=== PATIENT | female | born 1970 | race Caucasian/White ===

== ENCOUNTER 2017-07-07 16:11 | Emergency (ER) | payer BC ==
--- NOTE | 2017-07-07 16:42 | EDM.PDOC ---
ED HPI GENERAL MEDICAL PROBLEM - General Chief Complaint: Genitourinary Problem Stated Complaint: PAIN Time Seen by Provider: 07/07/17 16:15 Source of Information: Reports: Patient History Limitations: Reports: No Limitations - History of Present Illness INITIAL COMMENTS - FREE TEXT/NARRATIVE: C/o R flank pain x 2d, now worse dx b/l kidney stones on CT 03-16-17 for the 1st time had stabbing R flank pain 1d from 2w ago, then had N the past 2w, then had pain x 2d at R flank, worse this AM and much worse in the past 1h went to walk-in clinic and given Toradol at 3p which eased the pain x 30 min, quite uncomfortable now at R flank and R groin dx with UTI at walk-in clinic and given Rx for antbx, not filled yet no f/c/d at home rght mid back/ right lower abdomen Pain Score (Numeric/FACES): 10 - Related Data Allergies Allergy/AdvReac Type Severity Reaction Status Date / Time No Known Allergies Allergy Verified 07/07/17 16:20 Home Meds: Home Meds Acetaminophen [Tylenol] 325 mg PO Q4HR PRN 04/08/16 [History] Albuterol [IJD: Albuterol HFA] 2 puff IH Q4HR PRN 04/08/16 [History] Codeine/guaiFENesin [Robitussin AC] 10 ml PO Q4HR PRN 04/08/16 [History] Cyanocobalamin (Vitamin B12) [Vitamin B12] 1,000 mcg PO DAILY 04/08/16 [History] Folic Acid/Multivit-Min/Lutein [Multi-Vitamin Gummies] 1 each PO DAILY 04/08/16 [History] Ibuprofen 200 mg PO DAILY PRN 04/08/16 [History] MV-Mn/Iron/FA/Herbal Cmplx#190 [Vitamin D3 Complete Caplet] 1 each PO BID [History] Naproxen Sodium [Aleve] 220 mg PO BID PRN 04/08/16 [History] Triamcinolone Acetonide [Kenalog 0.1% Crm] 1 applic TOP BID PRN 04/08/16 [ History] Vitamin B Complex 1 each PO DAILY 04/08/16 [History] Past Medical History HEENT History: Reports: Impaired Vision Cardiovascular History: Reports: Arrhythmia, High Cholesterol, Hypertension Gastrointestinal History: Reports: Colon Polyp 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: Psychiatric History: Reports: None Endocrine/Metabolic History: Reports: Obesity/BMI 30+ - Past Surgical History GI Surgical History: Reports: Bariatric Procedure, Colonoscopy, Polypectomy Female Surgical History: Reports: Section, Hysterectomy Social & Family History - Family History Family Medical History: Noncontributory Oncologic: Reports: Colon - Tobacco Use Smoking Status *Q: Current Every Day Smoker Years of Tobacco use: 30 Packs/Tins Daily: 0.5 Second Hand Smoke Exposure: No - Recreational Drug Use Recreational Drug Use: No ED ROS GENERAL - Review of Systems Review Of Systems: See Below Constitutional: Reports: No Symptoms HEENT: Reports: No Symptoms Respiratory: Reports: No Symptoms Cardiovascular: Reports: No Symptoms Endocrine: Reports: No Symptoms GI/Abdominal: Reports: Abdominal Pain, Nausea : Reports: No Symptoms Musculoskeletal: Reports: Back Pain Skin: Reports: No Symptoms Neurological: Reports: No Symptoms Psychiatric: Reports: No Symptoms Hematologic/Lymphatic: Reports: No Symptoms Immunologic: Reports: No Symptoms ED EXAM, GI/ABD - Physical Exam Exam: See Below Exam Limited By: No Limitations General Appearance: Alert, WD/WN, Moderate Distress, Other (rocking, uncomfortable) Nose: Normal Inspection, Normal Mucosa, No Blood Throat/Mouth: Normal Inspection, Normal Lips, Normal Teeth, Normal Gums, Normal Oropharynx, Normal Voice, No Airway Compromise Head: Atraumatic, Normocephalic Neck: Normal Inspection, Supple, Non-Tender, Full Range of Motion Respiratory/Chest: No Respiratory Distress, Lungs Clear, Normal Breath Sounds, No Accessory Muscle Use, Chest Non-Tender Cardiovascular: Regular Rate, Rhythm, No Edema, No Murmur, No Rub GI/Abdominal Exam: Normal Bowel Sounds, Soft, No Distention, Other (1+ tender in RLQ just above mid-inguinal line and at R flank, no CVAT b/l) Back Exam: Normal Inspection, Full Range of Motion. No: CVA Tenderness (R), CVA Tenderness (L), Muscle Spasm Extremities: Normal Inspection, Normal Range of Motion, Non-Tender, No Pedal Edema Neurological: Alert, Oriented, CN II-XII Intact, Normal Cognition, No Motor/ Sensory Deficits Psychiatric: Normal Affect, Normal Mood Skin Exam: Warm, Dry, Intact, Normal Color, No Rash Lymphatic: No Adenopathy Course - Vital Signs Last Recorded V/S: Last Vital Signs Temp 37.0 C 07/07/17 19:32 Pulse 94 07/07/17 19:32 Resp 18 07/07/17 19:32 BP 129/82 07/07/17 19:32 Pulse Ox 96 07/07/17 19:32 - Orders/Labs/Meds Orders: Active Orders 24 hr Category Date Time Status Abdomen Pelvis wo Cont [CT] Stat Exams 07/07/17 17:10 Taken Ondansetron [Zofran ODT] Med 07/07/17 17:50 Active 4 mg PO ONETIME PRN Medication Orders Ondansetron HCl (Zofran Odt) 4 mg PO ONETIME PRN PRN Reason: Nausea Last Admin: 07/07/17 16:50 Dose: 4 mg Labs: Laboratory Tests 07/07/17 Range/Units 15:08 C-Reactive Protein < 0.2 L (0.5-0.9) mg/dL Meds: Medications Generic Name Dose Route Start Last Admin Trade Name Freq PRN Reason Stop Dose Admin Ondansetron HCl 4 mg 07/07/17 17:50 07/07/17 16:50 Zofran Odt PO 4 mg ONETIME PRN Administration Nausea Discontinued Medications Generic Name Dose Route Start Last Admin Trade Name Freq PRN Reason Stop Dose Admin Ceftriaxone Sodium 1,000 mg 07/07/17 16:36 07/07/17 17:25 Rocephin IVPUSH 07/07/17 16:37 1,000 mg ONETIME ONE Administration Hydromorphone HCl 1 mg 07/07/17 16:35 07/07/17 17:25 Dilaudid IVPUSH 07/07/17 16:36 1 mg ONETIME ONE Administration Hydromorphone HCl 0.5 mg 07/07/17 19:23 07/07/17 19:30 Dilaudid IVPUSH 07/07/17 19:24 0.5 mg ONETIME ONE Administration Sodium Chloride 1,000 mls @ 999 mls/hr 07/07/17 16:35 07/07/17 17:25 Normal Saline IV 07/07/17 17:35 999 mls/hr .BOLUS ONE Administration Ondansetron HCl 4 mg 07/07/17 16:35 07/07/17 18:29 Zofran IVPUSH 07/07/17 16:36 Not Given ONETIME ONE Ondansetron HCl Confirm 07/07/17 16:49 07/07/17 18:29 Zofran Odt Administered 07/07/17 16:50 Not Given Dose 4 mg .ROUTE .STK-MED ONE Ondansetron HCl 4 mg 07/07/17 18:34 Zofran IVPUSH 07/07/17 18:35 ONETIME ONE - Re-Assessments/Exams Free Text/Narrative Re-Assessment/Exam: 07/07/17 19:42 CT shows 7.6 mm stone at R UVJ, also 5 mm stone at R renal pelvis pt has not seen a urologist previously, states she had a UTI 03/04, CT showed 2 calculi at R kidney of 3.9 and 5.8 mm, no obstruction, did not base a stone CT tonight also shows calcification of arteries d/w urologist Dr Perez at [facility] who recommended transfer for a possible procedure as her probability of passing the stone is less than 15%. Pt given an additional 0.5 mg Dilaudid IV for recurrent pain as well as a 2nd dose of Zofran 4 mg IV for recurrent nausea pt declined hospital transfer and will have her s.o. take her by private vehicle pt also d/w hospitalist Dr Harrington who accepted her in transfer Departure - Departure Time of Disposition: 19:41 Disposition: DC/Tfer to Acute Hospital 02 Condition: Fair Clinical Impression: Right ureteral calculus, UTI, Urinary tract infectious disease, Hydronephrosis , Acute prerenal azotemia - Discharge Information Referrals: Destin Conrad MD [Primary Care Provider] - Forms: ED Department Discharge - My Orders Last 24 Hours: My Active Orders 07/07/17 17:10 Abdomen Pelvis wo Cont [CT] Stat 07/07/17 17:50 Ondansetron [Zofran ODT] 4 mg PO ONETIME PRN - Assessment/Plan Last 24 Hours: My Active Orders 07/07/17 17:10 Abdomen Pelvis wo Cont [CT] Stat 07/07/17 17:50 Ondansetron [Zofran ODT] 4 mg PO ONETIME PRN
[2017-07-07] MEDS: Ondansetron 4 MG Tab.DIS PO PRN (16:50)
[2017-07-07] MEDS: cefTRIAXone 1,000 MG VIAL IVPUSH ONE (17:25)
[2017-07-07] MEDS: Sodium Chloride 0.9% 1,000 ML IV ONE (17:25)
[2017-07-07] MEDS: HYDROmorphone 2 MG/ML SDV IVPUSH ONE ×2 (17:25→19:30)
[2017-07-07] MEDS: Ondansetron 4 MG/2 ML SDV IVPUSH ONE ×2 (18:29→19:30)
[2017-07-07] MEDS: Ondansetron 4 MG Tab.DIS ONE (18:29)
[2017-07-07 19:33] VITALS: BP 129/82
--- NOTE | 2017-07-08 10:48 | CT ---
INDICATION: Right flank pain x2 days, UTI, nausea x2 weeks. CT ABDOMEN AND PELVIS WITHOUT CONTRAST: Spiral 1.25-mm axial sections were obtained through the abdomen and pelvis with renal calculus protocol, including sagittal and coronal reconstructions and no contrast. Examination was obtained 07/07/2017 and is compared with 03/16/2017. Total Exam DLP = 1292.51 mGy-cm. The lower lung reardon and pleural spaces visualized appeared normal. The heart appeared normal in size. Evidence of gastric bypass surgery is again noted. There is pyelocaliectasis and ureterectasis down to the ureteropelvic junction area on the right, with a 5.6 x 7.8-mm calculus lodge in the ureteropelvic junction area, but distal to that calculus, appeared normal in caliber. Additionally, there is a calculus in the lower pole of the right kidney, which measured approximately 6.5 mm maximally by 4.5 mm. This calculus does not appear to be obstructive. No other renal calculi were identified. There is renal fascial thickening on the right, compatible with an obstructive process of mild to moderate degree. The liver had a normal appearance. The gallbladder had a somewhat distended appearance, which may be on the basis of NPO status and should be correlated clinically. The spleen, pancreas, common bile duct, adrenal glands, and left kidney were unremarkable. No retroperitoneal mass was identified. Calcifications are noted in the abdominal aorta, iliac, and femoral arteries. The appendix is absent, compatible with history of its removal. The uterus is absent, compatible with history of its removal. No evidence of bowel obstruction or free air was identified. The urinary bladder had a normal appearance. No other organomegaly, mass lesions, or free fluid collections were identified in the abdomen or pelvis. IMPRESSION: 1. Mild to moderate obstructive uropathy on the right with a moderately large calculus lodged in the ureteropelvic junction. 2. Small to moderate sized calculus, measuring 4.5 x 6.5 mm, noted in the lower pole of the right kidney - nonobstructive. 3. ASD - appears relatively extensive for this age group. 4. Post appendectomy. 5. Post hysterectomy. 6. Post gastric bypass surgery. Report was called to Dr. Claire at 1755 hours, 07/07/2017. ROSIBEL
== END 2017-07-07 19:40 ==
LOC: FB.ED 16:11
DX: N13.2 Hydronephrosis with renal and ureteral calculous obstruction (principal); R79.89 Other specified abnormal findings of blood chemistry; N39.0 Urinary tract infection, site not specified; E78.00 Pure hypercholesterolemia, unspecified; I10 Essential (primary) hypertension; F17.210 Nicotine dependence, cigarettes, uncomplicated; E66.9 Obesity, unspecified; Z79.899 Other long term (current) drug therapy
CPT/HCPCS: 36415; 74176; 86140; 96361; 96374; 96375; 96376; 99285; A9270-GY; J0696; J1170; J2405; J7040

== ENCOUNTER 2019-04-28 15:56 | Emergency (ER) | payer BC, OTHER ==
[2019-04-28] MEDS ORDERED: traMADol 50 MG Tab PO ONE (15:57)
--- NOTE | 2019-04-28 16:12 | EDM.PDOC ---
ED HPI GENERAL MEDICAL PROBLEM - General Chief Complaint: Genitourinary Problem Stated Complaint: KIDNEY STONES? Time Seen by Provider: 04/28/19 16:00 Source of Information: Reports: Patient, Old Records History Limitations: Reports: No Limitations - History of Present Illness INITIAL COMMENTS - FREE TEXT/NARRATIVE: Abigail returns to [facility] ED with sudden onset of R lower back pain, steady, and deep. Pain is reminiscent of kidney stone about 2 years ago. There is no nausea or vomiting, no injury hx, and she no reported voiding sxs. She has taken no meds. - Related Data Allergies Allergy/AdvReac Type Severity Reaction Status Date / Time fentanyl Allergy Itching Verified 04/28/19 16:35 Home Meds: Home Meds Acetaminophen [Tylenol] 325 mg PO Q4HR PRN 04/08/16 [History] Cyanocobalamin (Vitamin B12) [Vitamin B12] 1,000 mcg PO DAILY 04/08/16 [History] Folic Acid/Multivit-Min/Lutein [Multi-Vitamin Gummies] 1 each PO DAILY 04/08/16 [History] Mv-Mn/Iron/Folic Acid/Herb 190 [Vitamin D3 Complete Caplet] 1 each PO BID [History] Vitamin B Complex 1 each PO DAILY 04/08/16 [History] Ferrous Fumarate [Ferrocite] 324 mg PO DAILY 04/28/19 [History] traZODone 100 mg PO BEDTIME 04/28/19 [History] Past Medical History HEENT History: Reports: Impaired Vision Cardiovascular History: Reports: Arrhythmia, High Cholesterol, Hypertension Gastrointestinal History: Reports: Colon Polyp, Other (See Below) (Gastric bypass surgery) [employer]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 ED EXAM, RENAL/ - Physical Exam Exam: See Below Exam Limited By: No Limitations General Appearance: Alert, WD/WN, No Apparent Distress, Anxious, Obese Head: Normocephalic Neck: Normal Inspection, Supple, Non-Tender Respiratory/Chest: Lungs Clear Cardiovascular: Regular Rate, Rhythm, No Murmur GI/Abdominal: Normal Bowel Sounds, Soft, Non-Tender, No Organomegaly, No Distention, No Mass (Female) Exam: Deferred Rectal (Female) Exam: Deferred Back Exam: Normal Inspection, Paraspinal Tenderness (R below CVA) Extremities: Normal Inspection, Normal Range of Motion Neurological: Alert, Oriented, CN II-XII Intact, Normal Cognition, No Motor/ Sensory Deficits Psychiatric: Normal Affect, Anxious Skin Exam: Warm, Dry, Intact, Normal Color, No Rash Lymphatic: No Adenopathy Course - Vital Signs Text/Narrative:: Following assessment, the UA, CBC, and BMP were negative. Back pain NOS, possible ureteral stone. - Orders/Labs/Meds Labs: Laboratory Tests 04/28/19 04/28/19 04/28/19 Range/Units 16:15 16:18 16:18 WBC 9.4 (4.5-12.0) X10-3/uL RBC 4.34 (3.23-5.20) x10(6)uL Hgb 12.5 (11.5-15.5) g/dL Hct 37.2 (30.0-51.3) % MCV 85.7 (80-96) fL MCH 28.7 (27.7-33.6) pg MCHC 33.5 (32.2-35.4) g/dL RDW 17.6 H (11.5-15.5) % Plt Count 285 (125-369) X10(3)uL MPV 8.5 (7.4-10.4) fL Neut % (Auto) 57.2 (46-82) % Lymph % (Auto) 35.8 (13-37) % [place] % (Auto) 5.9 (4-12) % Eos % (Auto) 1 (1.0-5.0) % Baso % (Auto) 0 (0-2) % Neut # (Auto) 5.3 (1.6-8.3) # Lymph # (Auto) 3.4 (0.6-5.0) # [place] # (Auto) 0.6 (0.0-1.3) # Eos # (Auto) 0.1 (0.0-0.8) # Baso # (Auto) 0.0 (0.0-0.2) # Sodium 143 (135-145) mmol/L Potassium 3.9 (3.5-5.3) mmol/L Chloride 105 (100-110) mmol/L Carbon Dioxide 25 (21-32) mmol/L BUN 9 (7-18) mg/dL Creatinine 0.5 L (0.55-1.02) mg/dL Est Cr Clr Drug Dosing TNP Estimated GFR (MDRD) > 60 (>60) BUN/Creatinine Ratio 18.0 (9-20) Glucose 85 (80-116) mg/dL Calcium 8.6 (8.6-10.2) mg/dL Urine Color Yellow (YELLOW) Urine Appearance Clear (CLEAR) Urine pH 5.0 (5.0-6.5) Ur Specific [place] 1.010 (1.010-1.025) Urine Protein Negative (NEGATIVE) mg/dL Urine Glucose (UA) Normal (NORMAL) mg/dL Urine Ketones Negative (NEGATIVE) mg/dL Urine Occult Blood Negative (NEGATIVE) Urine Nitrite Negative (NEGATIVE) Urine Bilirubin Negative (NEGATIVE) Urine Urobilinogen Normal (NEGATIVE) mg/dL Ur Leukocyte Esterase Negative (NEGATIVE) Urine RBC 0-5 (0-5) Urine WBC 0-5 (0-5) Ur Squamous Epith Cells Few H (NS,R,O) Urine Bacteria Rare H (NS) Departure - Departure Time of Disposition: 16:48 Disposition: Home, Self-Care 01 Condition: Fair Clinical Impression: History of renal stone - Discharge Information *PRESCRIPTION DRUG MONITORING PROGRAM REVIEWED*: Not Applicable *COPY OF PRESCRIPTION DRUG MONITORING REPORT IN PATIENT ALESSANDRO: Not Applicable Referrals: Walter Blake MD [Primary Care Provider] - Forms: ED Department Discharge Sepsis Event Note - Focused Exam Date Exam was Performed: 04/28/19 Time Exam was Performed: 16:47 - Problem List & Annotations (1) History of renal stone SNOMED Code(s): 815443015 Code(s): Z87.442 - PERSONAL HISTORY OF URINARY CALCULI Status: Acute Annotation/Comment:: I suggested extra fluids, Tramadol, and strain all urine in the interim. - Problem List Review Problem List Initiated/Reviewed/Updated: Yes - Assessment/Plan Plan: Follow up if sxs escalate or stone is collected for analysis.
[2019-04-28 16:51] VITALS: BP 151/82; PULSE 83
== END 2019-04-28 17:00 | disposition home or self-care (01) ==
LOC: FB.ED 15:56
DX: M54.5 Low back pain (principal); Z87.442 Personal history of urinary calculi; I10 Essential (primary) hypertension; E66.9 Obesity, unspecified; Z98.84 Bariatric surgery status; Z90.710 Acquired absence of both cervix and uterus; Z88.8 Allergy status to other drugs, medicaments and biological substances; Z79.899 Other long term (current) drug therapy
CPT/HCPCS: 36415; 80048; 81001; 85025; 99283; A9270

== ENCOUNTER 2021-04-13 07:52 | Day surgery (SDC) | payer OTHER ==
[2021-04-13] MEDS ORDERED: Propofol 200 MG/20 ML SDV IV ONE (07:53)
[2021-04-13] MEDS ORDERED: Lactated Ringers 1,000 ML IV SCH (08:00)
[2021-04-13] MEDS ORDERED: Sodium Chloride 0.9% 10 ML Syringe FLUSH PRN (08:00)
--- NOTE | 2021-04-13 09:23 | PCM.PN ---
- General Info Date of Service: 04/13/21 - Review of Systems Systems Review Comment:: 51 y/o female with family history of colon cancer in her father here for colonoscopy. She is medically stable to proceed. Her recent H and P is reviewed and no significant changes are noted. I have discussed the proposed colonoscopy with the patient. She agrees to proceed accepting risks. - Patient Data Vitals - Most Recent: Last Vital Signs Temp 99.9 F 04/13/21 08:16 Pulse 91 04/13/21 08:16 Resp 20 04/13/21 08:16 BP 154/90 H 04/13/21 08:16 Pulse Ox 94 L 04/13/21 08:16 Weight - Most Recent: 219 lb 2.232 oz Med Orders - Current: Current Medications Lactated Ringer's (Ringers, Lactated) 1,000 mls @ 125 mls/hr IV ASDIRECTED BE Last Admin: 04/13/21 08:43 Dose: 125 mls/hr Documented by: Sodium Chloride (Sodium Chloride 0.9% 10 Ml Syringe) 10 ml FLUSH ASDIRECTED PRN PRN Reason: Keep Vein Open Sepsis Event Note - Focused Exam Vital Signs: Vital Signs Temp Pulse Resp BP Pulse Ox 04/13/21 08:16 99.9 F 91 20 154/90 H 94 L - Problem List Review Problem List Initiated/Reviewed/Updated: Yes - My Orders Last 24 Hours: My Active Orders 04/13/21 Breakfast Nothing Per Oral Diet [DIET] 04/13/21 08:00 Patient Status [ADT] Routine Patient to Empty Bladder [RC] ASDIRECTED Verify Patient Consent Obtain [RC] ASDIRECTED Lactated Ringers [Ringers, Lactated] 1,000 ml IV ASDIRECTED Sodium Chloride 0.9% [Saline Flush] 10 ml FLUSH ASDIRECTED PRN Peripheral IV Insertion Adult [OM.PC] Routine - Assessment Assessment:: Family history of colon cancer - Plan Plan:: Colonoscopy
--- NOTE | 2021-04-13 10:06 | PCM.OPNOTE ---
- General Post-Op/Procedure Note Date of Surgery/Procedure: 04/13/21 Operative Procedure(s): Colonoscopy Findings: Few Diverticuli in Sigmoid Colon Pre Op Diagnosis: Family History of Colon Cancer Post-Op Diagnosis: Sigmoid Diverticulosis Anesthesia Technique: MAC Primary Surgeon: Pedro Miner Pathology: none EBL in mLs: 0 Complications: None Condition: Good
[2021-04-13 11:02] VITALS: BP 137/82; PULSE 84
--- NOTE | 2021-04-13 12:45 | OR ---
DATE OF OPERATION: 04/13/2021 SURGEON: Pedro Miner MD PREOPERATIVE DIAGNOSIS: Family history of colon cancer. POSTOPERATIVE DIAGNOSIS: Sigmoid diverticulosis. OPERATION PERFORMED: Colonoscopy. INDICATIONS FOR SURGERY: This 51-year-old female has a known family history of colon cancer in her father. She comes today for high-risk screening colonoscopy. FINDINGS: No polyps were seen on today's exam. The patient does have a mild degree of diverticulosis in the sigmoid region with a few scattered diverticula being seen. The remainder of the colon and rectum appear normal. PROCEDURE IN DETAIL: The patient was taken to the procedure room. She was given intravenous sedation and with her in the left lateral decubitus position, digital rectal exam was performed showing no rectal masses. The Olympus colonoscope was inserted into the rectum. Retroflexed examination of the rectal canal was performed. The scope was then carefully advanced under direct visualization through the entire length of the colon until the cecum was reached. Cecal acquisition was confirmed by noting normal internal cecal anatomy including the appendiceal orifice and the ileocecal valve. The ileocecal valve was cannulated and the terminal ileum examined and appeared normal. The scope was then slowly withdrawn sequentially re-examining the colonic segments until the entire colon and rectum had been fully examined. The scope was removed and the patient was taken from the procedure room in satisfactory condition. ESTIMATED BLOOD LOSS: Zero. COMPLICATIONS: None. PROGNOSIS: Good. /[id number] VERONICA/KALEY
== END 2021-04-13 10:50 | disposition home or self-care (01) ==
LOC: FB.SDS 07:52
PROVIDERS: ATTEND Surgery
DX: Z12.11 Encounter for screening for malignant neoplasm of colon (principal); K57.30 Diverticulosis of large intestine without perforation or abscess without bleeding; Z80.0 Family history of malignant neoplasm of digestive organs; F17.210 Nicotine dependence, cigarettes, uncomplicated; I10 Essential (primary) hypertension; E66.9 Obesity, unspecified; F32.A Depression, unspecified; M62.838 Other muscle spasm; K76.0 Fatty (change of) liver, not elsewhere classified; G47.33 Obstructive sleep apnea (adult) (pediatric); Z79.899 Other long term (current) drug therapy; Z98.890 Other specified postprocedural states; Z68.38 Body mass index [BMI] 38.0-38.9, adult
CPT/HCPCS: 00812; 45378; J2704; J7120

== ENCOUNTER 2021-05-18 07:45 | Emergency (ER) | payer OTHER ==
[2021-05-18] MEDS ORDERED: Sodium Chloride 0.9% 1,000 ML IV ONE (08:28)
[2021-05-18] MEDS ORDERED: Ketorolac 30 MG/ML SDV IVPUSH ONE (08:28)
[2021-05-18] MEDS ORDERED: Ondansetron 4 MG/2 ML SDV IVPUSH ONE (08:28)
[2021-05-18 09:17] VITALS: BP 149/95; PULSE 95
[2021-05-18] MEDS ORDERED: Morphine 2 MG/ML SYRINGE IVPUSH ONE (10:28)
[2021-05-18] MEDS ORDERED: Metoclopramide 10 MG/2 ML SDV IVPUSH ONE (10:29)
== END 2021-05-18 11:38 | disposition home or self-care (01) ==
LOC: FB.ED 07:45
DX: S39.012A Strain of muscle, fascia and tendon of lower back, initial encounter (principal); M47.816 Spondylosis without myelopathy or radiculopathy, lumbar region; I10 Essential (primary) hypertension; E66.9 Obesity, unspecified; Z68.35 Body mass index [BMI] 35.0-35.9, adult; Z72.0 Tobacco use; Z90.49 Acquired absence of other specified parts of digestive tract; Z90.710 Acquired absence of both cervix and uterus; Z79.899 Other long term (current) drug therapy; W00.0XXA Fall on same level due to ice and snow, initial encounter
CPT/HCPCS: 36415; 74176; 80053; 81001; 85025; 86140; 96374; 96375; 99284; J1885; J2270; J2405; J2765; J7030

== ENCOUNTER 2024-01-25 14:40 | Inpatient (IN) | payer OTHER ==
[2024-01-25] MEDS ORDERED: Ondansetron 4 MG/2 ML SDV IV PRN (14:55)
[2024-01-25] MEDS: Sodium Chloride 0.9% 10 ML Syringe FLUSH PRN (15:00)
[2024-01-25] MEDS ORDERED: Sodium Chloride 0.9% 1,000 ML IV SCH (15:00)
[2024-01-25] MEDS: Lidocaine 2% HCl 6 ML Jel MM ONE (15:20)
[2024-01-25] MEDS: LORazepam 2 MG/ML SDV IV ONE (15:20)
[2024-01-25] MEDS: NS + KCl 20mEq/L 1,000 ML IV SCH (15:21)
[2024-01-25] MEDS: Morphine 2 MG/ML SYRINGE IVPUSH PRN (16:22)
[2024-01-25] MEDS: Magnesium Sulfate/Water Premix 2 GM in Premix Bag 1 BAG IV ONE (16:25)
[2024-01-26] MEDS: Morphine 2 MG/ML SYRINGE IVPUSH PRN (00:48)
[2024-01-26 06:17] LABS: BASOPHILS PERCENT AUTO 0.3 % (0.2-1.5); EOSINOPHILS PERCENT AUTO 0.4 % (0.6-8.1); HEMATOCRIT 31.5 % (34.2-48.2); HEMOGLOBIN 9.9 g/dL (11.4-15.5); LYMPHOCYTES ABSOLUTE AUTO 2.7 x10-3/uL (1.0-4.4); LYMPHOCYTES PERCENT AUTO 29.7 % (18.4-52.1); MEAN CORPUSCULAR HEMOGLOBIN 24.4 pg (23.9-33.9); MEAN CORPUSCULAR HGB CONC 31.6 g/dL (31.9-34.8); MEAN CORPUSCULAR VOLUME 77.1 fL (76.7-100.5); MEAN PLATELET VOLUME 8.8 fL (7.1-12.4); MONOCYTES ABSOLUTE AUTO 0.6 x10-3/uL (0.3-1.0); MONOCYTES PERCENT AUTO 6.2 % (4.4-15.7); NEUTROPHILS ABSOLUTE AUTO 5.9 x10-3/uL (1.5-6.3); NEUTROPHILS PERCENT AUTO 63.4 % (30.8-76.2); PLATELET COUNT,PLT 233 x10(3)uL (151-488); WHITE BLOOD CELL COUNT,WBC 9.2 x10-3/uL (3.0-10.3)
[2024-01-26 06:25] LABS: RED BLOOD CELL COUNT 4.08 x10(6)uL (3.60-5.20)
[2024-01-26 06:30] LABS: ALANINE AMINOTRANSFERASE,ALT 17 U/L (12-36); ALBUMIN 3.1 g/dL (3.5-5.2); ALKALINE PHOSPHATASE 118 IU/L (56-112); ASPARTATE AMNIOTRANSFERASE,AST 19 IU/L (5-25); BILIRUBIN TOTAL 0.4 mg/dL (0.1-1.3); BLOOD UREA NITROGEN,BUN 8 mg/dL (7-18); CALCIUM 7.8 mg/dL (8.6-10.2); CARBON DIOXIDE,CO2 30 mmol/L (21-32); CHLORIDE,CL 105 mmol/L (100-110); CREATININE 0.4 mg/dL (0.55-1.02); EST CRCL DRUG DOSING (CG) 144.68 mL/min; ESTIMATED GFR 118 mL/min (>60); GLUCOSE RANDOM 95 mg/dL (80-116); MAGNESIUM 1.7 mg/dL (1.8-2.5); POTASSIUM,K 3.8 mmol/L (3.5-5.3); PROTEIN TOTAL,TP 6.3 g/dL (6.0-8.0); SODIUM,NA 141 mmol/L (135-145)
[2024-01-26] MEDS: Magnesium Sulfate/Water Premix 4 GM in Premix Bag 1 BAG IV ONE (09:00)
[2024-01-26] MEDS: LORazepam 2 MG/ML SDV IVPUSH PRN (09:46)
[2024-01-26] MEDS: NS + KCl 20mEq/L 1,000 ML IV SCH ×2 (11:55→23:30)
[2024-01-26] MEDS: Labetalol 20 MG/4 ML Syringe IVPUSH PRN (16:08)
[2024-01-27 06:51] LABS: BASOPHILS PERCENT AUTO 0.4 % (0.2-1.5); EOSINOPHILS ABSOLUTE AUTO 0.1 x10-3/uL (0.0-0.8); EOSINOPHILS PERCENT AUTO 0.7 % (0.6-8.1); HEMATOCRIT 32.2 % (34.2-48.2); HEMOGLOBIN 10.1 g/dL (11.4-15.5); LYMPHOCYTES ABSOLUTE AUTO 2.5 x10-3/uL (1.0-4.4); LYMPHOCYTES PERCENT AUTO 28.4 % (18.4-52.1); MEAN CORPUSCULAR HEMOGLOBIN 24.3 pg (23.9-33.9); MEAN CORPUSCULAR HGB CONC 31.5 g/dL (31.9-34.8); MEAN CORPUSCULAR VOLUME 77.4 fL (76.7-100.5); MEAN PLATELET VOLUME 9.6 fL (7.1-12.4); MONOCYTES ABSOLUTE AUTO 0.6 x10-3/uL (0.3-1.0); MONOCYTES PERCENT AUTO 7.1 % (4.4-15.7); NEUTROPHILS ABSOLUTE AUTO 5.6 x10-3/uL (1.5-6.3); NEUTROPHILS PERCENT AUTO 63.4 % (30.8-76.2); PLATELET COUNT,PLT 231 x10(3)uL (151-488); WHITE BLOOD CELL COUNT,WBC 8.8 x10-3/uL (3.0-10.3)
[2024-01-27 06:54] LABS: ALANINE AMINOTRANSFERASE,ALT 18 U/L (12-36); ALBUMIN 3.3 g/dL (3.5-5.2); ALKALINE PHOSPHATASE 115 IU/L (56-112); ASPARTATE AMNIOTRANSFERASE,AST 16 IU/L (5-25); BILIRUBIN TOTAL 0.4 mg/dL (0.1-1.3); BLOOD UREA NITROGEN,BUN 6 mg/dL (7-18); CALCIUM 8.5 mg/dL (8.6-10.2); CARBON DIOXIDE,CO2 27 mmol/L (21-32); CHLORIDE,CL 104 mmol/L (100-110); CREATININE 0.5 mg/dL (0.55-1.02); EST CRCL DRUG DOSING (CG) 115.74 mL/min; ESTIMATED GFR 111 mL/min (>60); GLUCOSE RANDOM 90 mg/dL (80-116); MAGNESIUM 1.7 mg/dL (1.8-2.5); POTASSIUM,K 3.9 mmol/L (3.5-5.3); PROTEIN TOTAL,TP 6.7 g/dL (6.0-8.0); SODIUM,NA 140 mmol/L (135-145)
[2024-01-27 07:19] LABS: RED BLOOD CELL COUNT 4.16 x10(6)uL (3.60-5.20)
[2024-01-27] MEDS: Magnesium Sulfate/Water Premix 2 GM in Premix Bag 1 BAG IV ONE (09:18)
[2024-01-27] MEDS: Magnesium Oxide 400 MG Tab PO ONE (09:50)
[2024-01-27 13:35] VITALS: BP 151/92; PULSE 80
== END 2024-01-27 13:25 | disposition home or self-care (01) | DRG 390 ==
LOC: FB.MS 14:40
PROVIDERS: ADMIT Family Medicine; ATTEND Internal Medicine
DX: K56.50 Intestinal adhesions [bands], unspecified as to partial versus complete obstruction (principal); E78.00 Pure hypercholesterolemia, unspecified; I10 Essential (primary) hypertension; E66.9 Obesity, unspecified; Z90.49 Acquired absence of other specified parts of digestive tract; Z90.710 Acquired absence of both cervix and uterus; Z68.34 Body mass index [BMI] 34.0-34.9, adult
CPT/HCPCS: 36415; 71045; 80053; 83735; 85025; 99222; 99232; 99238; A9270-GY; J1920; J2060; J2270; J3475; J3480; J3490

== ENCOUNTER 2024-03-09 07:00 | Day surgery (SDC) | payer OTHER ==
[~2024-03-09 07:00] MED LIST: Sodium Chloride 0.9% 10 ML Syringe FLUSH PRN
[2024-03-09] MEDS ORDERED: Glycopyrrolate 0.2 MG/ML 5 ML MDV IV ONE (07:01)
[2024-03-09] MEDS ORDERED: Lidocaine 2% 100 MG/5 ML Syringe IVPUSH ONE (07:01)
[2024-03-09] MEDS ORDERED: Midazolam 1 MG/ML 2 ML SDV IV ONE (07:01)
[2024-03-09] MEDS ORDERED: Propofol 200 MG/20 ML SDV IV ONE (07:01)
[2024-03-09] MEDS: Lactated Ringers 1,000 ML IV SCH (08:00)
[2024-03-09] MEDS: Simethicone Drops 40 MG/0.6 ML 30 ML Bottle ONE (08:20)
[2024-03-09 10:46] VITALS: BP 142/82; PULSE 90
== END 2024-03-09 09:50 | disposition home or self-care (01) ==
LOC: FB.SDS 07:00
PROVIDERS: ATTEND Surgery
DX: K22.70 Barrett's esophagus without dysplasia (principal); K22.89 Other specified disease of esophagus; I10 Essential (primary) hypertension; F32.A Depression, unspecified; E66.9 Obesity, unspecified; F17.210 Nicotine dependence, cigarettes, uncomplicated
CPT/HCPCS: 00731; 88305; A9270-GY; J1596; J2250; J2704; J7120